=== PATIENT | female | born 2000 | race Caucasian/White ===

== ENCOUNTER → 2025-01-03 | Outpatient (CLI) | payer SELFPAY, OTHER ==
--- NOTE | 2025-01-03 16:57 | RAD_ITS ---
PROCEDURE: WRIST MIN 3 VIEWS 01/03/2025 REASON FOR EXAM: INJURY TECHNIQUE: 4 view(s) of the right wrist COMPARISON: None FINDINGS: Bones: No visible fracture. No suspicious bone lesion. Joints: Normal alignment. Soft tissues: Soft tissues are unremarkable. Other: RAD/Wrist min 3 Views IMPRESSION: NO ACUTE FRACTURE OR DISLOCATION. If acute hand or wrist trauma is suspected an d initial radiographs are negative or equivocal repeat radiographs in 10-14 days MRI without IV contrast or CT without IV contr ast is usually appropriate as the next imaging study. (ACR Appropriateness Criteria: Acute Hand and Wrist Trauma 2018) Reading Location: [facility]
--- NOTE | 2025-01-03 16:57 | RAD_ITS ---
PROCEDURE: HAND MIN 3 VIEWS 01/03/2025 REASON FOR EXAM: INJURY TECHNIQUE: 3 view(s) of the right hand COMPARISON: None FINDINGS: Bones: No acute fracture. Joints: Normal alignment. Soft tissues: Soft tissues are unremarkable. Other: RAD/Hand Min 3 Views IMPRESSION: NO ACUTE FRACTURE OR DISLOCATION. If acute hand or wrist trauma is suspected an d initial radiographs are negative or equivocal repeat radiographs in 10-14 days MRI without IV contrast or CT without IV contr ast is usually appropriate as the next imaging study. (ACR Appropriateness Criteria: Acute Hand and Wrist Trauma 2018) Reading Location: [facility]
--- NOTE | 2025-01-03 16:57 | RAD_ITS ---
PROCEDURE: ELBOW MIN 3 VIEWS 01/03/2025 REASON FOR EXAM: INJURY TECHNIQUE: 3 views of the right elbow. COMPARISON: None. FINDINGS: Bones: No evidence of acute fracture or dislocation. Joints: Normal alignment. Soft tissues: Soft tissues are unremarkable. Other: None. RAD/Elbow min 3 Views IMPRESSION: NO ACUTE FRACTURE OR DISLOCATION. Reading Location: [place] [id number]
== END | disposition home or self-care (01) ==
PROVIDERS: Referring Provider Physician Assistant; Visit Provider Physician Assistant
DX: S59.901A Unspecified injury of right elbow, initial encounter (principal); S69.91XA Unspecified injury of right wrist, hand and finger(s), initial encounter; X58.XXXA Exposure to other specified factors, initial encounter
CPT/HCPCS: 73080; 73110; 73130